=== PATIENT | female | born 1950 | race Caucasian/White ===

== ENCOUNTER 2019-07-03 11:09 | Emergency (ER) | payer OTHER ==
[2019-07-03 11:21] VITALS: BMI 24.7
--- NOTE | 2019-07-03 12:39 | PDOC ---
History of Present Illness - General Chief Complaint: Shortness of Breath Stated Complaint: ASTHMA Time Seen by Provider: 07/03/19 12:03 History Source: Patient Exam Limitations: No Limitations - History of Present Illness Initial Comments: 07/03/19 12:48 PCP: Roberto Coombs Pulm: [facility] HPI: 68yo never-smoker F pmh CKD, neck pain, 1 year or cough presenting with 1 week of worsening SOB. Patient has had 1 year of cough, shortness of breath with intermittent episodes of worsening symptoms, referred to Dr. Breaux for pulmoary workup, diagnosed with asthma, on 5mg Prednisone BID with albuterol inhaler. Reports she has a nebulizer Rx and the machine will be ready at her pharmacy later today. Presenting with what she believes is an exacerbation of her asthma. 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 Also endorsing chest tightness worsening over the past week, intermittently, temporally associated with her breathing symptoms but not pleuritic. No recent flights, leg swelling or pain, OCPs, history of DVT or clotting disorders. Denies any prior cardiac events, some mitral valve dysfunction, no HTN / HLD / FHx reported. Denies nausea, vomiting, crushing chest pain, diaphoresis. No fevers, chills, productive cough, weakness, fatigue , sick contacts. All: NKDA Meds: Per chart PMH: Chronic neck pain, 1 year cough, CKD, MV dysfunction Past History - Travel Traveled outside of the country in the last 30 days: No Close contact w/someone who was outside of country & ill: No - Past Medical History Allergies/Adverse Reactions: Allergies Allergy/AdvReac Type Severity Reaction Status Date / Time No Known Allergies Allergy Verified 07/03/19 11:19 Home Medications: Ambulatory Orders Albuterol Sulfate Inhaler - [Ventolin Hfa Inhaler -] 1 - 2 inh PO Q4H PRN Albuterol Sulfate [Proair Hfa] 8.5 gm IH QID PRN #1 [email or web address] 07/03/19 predniSONE [Deltasone -] 10 mg PO DAILY 07/03/19 - Psycho Social/Smoking Cessation Hx Smoking History: Never smoked Hx Alcohol Use: No Drug/Substance Use Hx: No Review of Systems - Review of Systems Able to Perform ROS?: Yes Is the patient limited Slovak proficient: Yes Constitutional: No: Chills, Diaphoresis, Fever, Weakness HEENTM: No: Eye Pain, Blurred Vision, Recent change in vision, Nose Congestion, Throat Pain, Throat Swelling, Mouth Pain Cardiac (ROS): Yes: Chest Tightness ABD/GI: No: Constipated, Diarrhea, Nausea, Vomiting : No: Burning, Dysuria, Frequency Musculoskeletal: No: Back Pain, Muscle Pain, Muscle Weakness Integumentary: No: Pruritus, Rash Neurological: No: Headache, Numbness, Tingling, Weakness Psychiatric: No: Stressors, Change in Appetite Endocrine: No: Increased Thirst, Increased Urine Hematologic/Lymphatic: No: Anemia, Blood Clots, Easy Bleeding All Other Systems: Reviewed and Negative *Physical Exam - Vital Signs Last Vital Signs Temp Pulse Resp BP Pulse Ox 97.8 F 78 18 141/86 98 07/03/19 11:19 07/03/19 11:19 07/03/19 11:19 07/03/19 11:19 07/03/19 11:19 - Physical Exam 07/03/19 14:34 Vitals reviewed, AFVSS GEN: Well appearing, appears stated age, NAD, comfortable. AAOx3. HEENT: NCAT, EOMI, PERRL. Sclera anicteric, noninjected. No facial asymmetry. Moist mucous membranes. Normal voice. Trachea midline. CV: RRR, S1/S2, no murmurs / rubs / gallops appreciated. LUNG: CTAB, normal work of breathing. No wheezes, rales, rhonchi. No cough. Speaking full sentences. GI: Soft, NTND, +BS, no guarding, no rebound. No masses. Neg CVAT b/l. EXTREMITIES: 2+ distal pulses. No LE edema. No obvious deformities of all extremities. SKIN: Warm, dry, no rashes appreciated, non-jaundiced. PSYCH: Normal mood and affect. Cooperative and appropriate. NEURO: CN grossly intact. Moving all extremities well. Normal strength and sensation grossly. ED Treatment Course - LABORATORY CBC & Chemistry Diagram: 07/03/19 13:10 07/03/19 13:10 Medical Decision Making - Medical Decision Making 07/03/19 13:00 68yo never-smoker F pmh CKD, neck pain, 1 year or cough presenting with 1 week of worsening SOB. History notable for nonproductive cough, dyspnea, absence of systemic symptoms or inciting events, non-pleuritic chest tightness. Exam notable for no wheezes, stable vitals, 100% Sat on RA, comfortable. DDX: Cold, influenza, PNA, asthma exacerbation, other primary pulmonary disorder (no fibrosis on recent CT), less likely r/o ACS, unlikely PE. Cannot PERC out, Wells ' Score 0. - Place on monitor - CXR, EKG - Troponin - Influenza 07/03/19 14:30 EKG normal rate, rhythm, axis, no ischemic changes, incomplete RBBB No leukocytosis or anemia Electrolytes wnl Troponin negative Influenza negative Patient remains hemodynamically stable Call placed to Dr. Breaux, out of office, referral provided Dispo: Home 07/03/19 14:59 - Spoke with Dr. Coombs, patient with negative stress test late [address] Horn at [place], Hx of mitral stenosis - Continue symbicort and prednisone, add proair 2 puffs QID - Has Appointment with [facility] on Wednesday 07/05 - Has appointment with Dr. Breaux on Thursday 07/06 Discharge - Discharge Information Problems reviewed: Yes Clinical Impression/Diagnosis: Shortness of breath Condition: Improved Disposition: HOME - Admission No - Follow up/Referral Referrals: Roberto Napoles MD [Primary Care Provider] - Chad Breaux MD [Staff Physician] - - Patient Discharge Instructions Patient Printed Discharge Instructions: DI for Shortness of Breath Additional Instructions: You were seen and evaluated at [place] for shortness of breath. Continue your home medications as prescribed. Continue prednisone and symbicort as directed. A prescription has been sent for a Proair inhaler, use this 2 puffs every 6 hours as needed. Please follow up with Dr. Coombs On 07/[address] Breaux 07/06 as scheduled. Return to the ED for any new or concerning symptoms including but not limited to : worsening breathing, leg swelling and pain, or worsening chest pain. - Post Discharge Activity
--- NOTE | 2019-07-03 12:45 | PDOC ---
History of Present Illness - General Chief Complaint: Shortness of Breath Stated Complaint: ASTHMA Time Seen by Provider: 07/03/19 12:03 - History of Present Illness Initial Comments: 07/03/19 12:44 68 y/o female with a PMHx of CKD and 1 year h/o cough here today w/ 1 week h/o worsening non-productive cough and acute onset of chest pain. CP is squeezing, substernal, non-radiating and started either this morning. Evaluated by PMD for cough and told she had asthma. Reports a negative CT chest earlier this month. Past History - Past Medical History Allergies/Adverse Reactions: Allergies Allergy/AdvReac Type Severity Reaction Status Date / Time No Known Allergies Allergy Verified 07/03/19 11:19 Home Medications: Ambulatory Orders Albuterol Sulfate Inhaler - [Ventolin Hfa Inhaler -] 1 - 2 inh PO Q4H PRN predniSONE [Deltasone -] 10 mg PO DAILY 07/03/19 - Psycho Social/Smoking Cessation Hx Smoking History: Never smoked Hx Alcohol Use: No Drug/Substance Use Hx: No Review of Systems - Review of Systems Is the patient limited [place] proficient: Yes *Physical Exam - Vital Signs Last Vital Signs Temp Pulse Resp BP Pulse Ox 97.8 F 78 18 141/86 98 07/03/19 11:19 07/03/19 11:19 07/03/19 11:19 07/03/19 11:19 07/03/19 11:19 Discharge - Follow up/Referral Referrals: Roberto Napoles MD [Primary Care Provider] - - Patient Discharge Instructions - Post Discharge Activity
--- NOTE | 2019-07-03 13:15 | PDOC ---
Attending Attestation - Resident Resident Name: SdBrennon sawyeriel - ED Attending Attestation I have performed the following: I have examined & evaluated the patient, The case was reviewed & discussed with the resident, I agree w/resident's findings & plan - HPI HPI: 07/03/19 14:06 68yo never-smoker F pmh CKD, neck pain, 1 year or cough presenting with 1 week of worsening SOB. Patient has had 1 year of cough, shortness of breath with intermittent episodes of worsening symptoms, referred to Dr. Breaux for pulm workup, diagnosed with asthma, on 5mg Prednisone BID with albuterol inhaler. Reports she has a nebulizer Rx and the machine will be ready at her pharmacy later today. Presenting with what she believes is an exacerbation of her asthma. 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 Also endorsing chest tightness worsening over the past week, intermittently, temporally associated with her breathing symptoms but not pleuritic. No recent immobilization or flight, leg swelling or pain, OCPs, history of DVT or clotting disorders. Denies any prior cardiac events, Denies nausea, vomiting, crushing chest pain, diaphoresis. No fevers, chills, productive cough, weakness, fatigue, sick contacts. PMD Dr Breaux 07/03/19 14:46 - Physicial Exam PE: 07/03/19 13:13 Agree with the resident's HPI and PE as documented in the electronic medical record. NAD, well appearing, EOMI, PERRL, nl conjunctiva, anicteric; no facial edema noted. Normal phonation, clear oropharynx. Neck supple. lungs clear, no respiratory distress, RRR, abdomen soft nontender. no rebound, guarding. Back nontender. LEUNG x4, no focal neuro deficits. No peripheral edema. normal color for ethnicity, WWP. - Medical Decision Making 07/03/19 13:13 Vital Signs Temp Pulse Resp BP Pulse Ox 97.8 F 78 18 141/86 98 07/03/19 11:19 07/03/19 11:19 07/03/19 11:19 07/03/19 11:19 07/03/19 11:19 ddx. sob, asthma, pulm edema, anemia, electrolyte/metabolic derangements, pleurisy, ACS, arrhythmia. VS reviewed, wnl. no fever, no tachy, sats wnl 07/03/19 14:06 Laboratory results reviewed within normal limits, flu is negative. Troponin is negative x1, reassuring unlikely be cardiac arrhythmia. Clinically doubt PE or dissection. No anemia, CBC was within normal limits. cxr clear, no acute pathology, no ptx, no effusion/edema or infiltrate. 07/03/19 14:06 clinical call back to primary doctor, Dr Breaux Pt to be discharged in stable condition. Patient made aware of clinical impression, treatment recommendations and disposition plan, return precautions discussed (including but not limited to new or persistent/worsening symptoms, pain, fevers, or signs of infection, chest pain, respiratory distress, inability to tolerate oral intake, dehydration, syncope, or neurologic changes) . Follow up with PMD and/or specialist as recommended, follow up information provided, take medications as instructed for duration of time. continue with supportive care, avoid triggers and precipitants. All questions answered to patient's satisfaction and expressed understanding and comfort with this. At the time of discharge, the patient is alert, clinically improved, tolerating po and verbalizes understanding of instructions, satisfied with the care received and felt comfortable with the plan. Patient does not suffer from an acute life- threatening medical condition at this time and is safe for outpatient follow- up. 07/03/19 14:46 Heart Score/ECG Review #1 ECG reviewed & interpreted by me at: 12:55 General ECG Interpretation: Sinus Rhythm, Normal Rate, Normal Intervals Compared to previous ECG there are: Previous ECG unavail 07/03/19 13:52 EKG normal sinus rhythm 72 bpm, incomplete right bundle branch block is noted, ST and T wave segments and morphology normal. Nonspecific T wave abnormalities
[2019-07-03 13:27] LABS: BASO % 0.6 % (0-2.0); EOS % 2.3 % (0-4.5); HEMATOCRIT 40.9 % (32.4-45.2); HEMOGLOBIN 14.3 GM/dL (10.7-15.3); LYMPH % 11.7 % (8-40); MCHC 34.9 g/dl (32.0-36.0); MEAN CELL VOLUME 91.6 fl (80-96); MEAN PLT VOLUME 8.5 fl (7.5-11.1); MONO % 3.8 % (3.8-10.2); NEUT % 81.6 % (42.8-82.8); PLATELET COUNT 155 K/MM3 (134-434); RBC 4.47 M/mm3 (3.60-5.2); RDW 14.4 % (11.6-15.6); WHITE BLOOD COUNT 7.5 K/mm3 (4.0-10.0)
--- NOTE | 2019-07-03 13:32 | PDOC ---
*Physical Exam - Vital Signs Last Vital Signs Temp Pulse Resp BP Pulse Ox 97.8 F 78 18 141/86 98 07/03/19 11:19 07/03/19 11:19 07/03/19 11:19 07/03/19 11:19 07/03/19 11:19 ED Treatment Course - LABORATORY CBC & Chemistry Diagram: 07/03/19 13:10 07/03/19 13:10 - ADDITIONAL ORDERS Additional order review: 07/03/19 13:10 RBC 4.47 MCV 91.6 MCHC 34.9 RDW 14.4 MPV 8.5 Neutrophils % 81.6 D Lymphocytes % 11.7 D Monocytes % 3.8 Eosinophils % 2.3 Basophils % 0.6 Medical Decision Making - Medical Decision Making 07/03/19 13:32 68 y/o female with a PMHx of CKD and 1 year h/o cough here today w/ 1 week h/o worsening non-productive cough and acute onset of CP. CP is squeezing, substernal, non-radiating and started either this morning. Evaluated by PMD for cough and told she had asthma. Reports a negative CT chest earlier this month. EKG, Troponin x1 to evaluate for r/o ACS, also consider chronic bronchitis, PNA , asthma, costochondritis, MSK 07/03/19 15:03 EKG with RBBB (c/w previous EKG) Troponin (-) x1 Patient well appearing, ambulatory around unit, requesting d/c home. Dr. Beaver discussed case with patient's PMD - requests Pro Air PRN, will see patient in office on Friday. Patient has previously scheduled appointment with Namita on Friday. Discharge - Discharge Information Problems reviewed: Yes Clinical Impression/Diagnosis: Shortness of breath Condition: Improved Disposition: HOME - Additional Discharge Information Prescriptions: Albuterol Sulfate [Proair Hfa] 8.5 gm IH QID PRN #1 [email or web address] PRN Reason: Asthma - Follow up/Referral Referrals: Chad Breaux MD [Staff Physician] - Roberto Napoles MD [Primary Care Provider] - - Patient Discharge Instructions Patient Printed Discharge Instructions: DI for Shortness of Breath Additional Instructions: You were seen and evaluated at [place] for shortness of breath. Continue your home medications as prescribed. Please follow up with your primary care doctor in the next 1-3 days for continued care. Return to the ED for any new or concerning symptoms including but not limited to : worsening breathing, leg swelling and pain, or worsening chest pain. - Post Discharge Activity
[2019-07-03 13:58] LABS: ALBUMIN 3.6 g/dl (3.4-5.0); ALK PHOS 80 U/L (45-117); ANION GAP 5 MMOL/L (8-16); BILIRUBIN,TOTAL 0.6 mg/dL (0.2-1); BLOOD UREA NITROGEN 21.2 mg/dL (7-18); CALCIUM 9.2 mg/dL (8.5-10.1); CHLORIDE 111 mmol/L (98-107); CO2 27 mmol/L (21-32); CREATININE 1.1 mg/dL (0.55-1.3); GLUCOSE,RANDOM 108 mg/dL (74-106); POTASSIUM 4.3 mmol/L (3.5-5.1); SGOT/AST 27 U/L (15-37); SGPT/ALT 41 U/L (13-61); SODIUM 143 mmol/L (136-145); TOT PROT 7.2 g/dl (6.4-8.2)
[2019-07-03 14:47] VITALS: BP 124/77; PULSE 72; TEMP 97.2
--- NOTE | 2019-07-05 10:25 | EKG ---
Test Reason : Blood Pressure : / mmHG Vent. Rate : 072 BPM Atrial Rate : 072 BPM P-R Int : 134 ms QRS Dur : 110 ms QT Int : 388 ms P-R-T Axes : 064 022 017 degrees QTc Int : 424 ms NORMAL SINUS RHYTHM INCOMPLETE RIGHT BUNDLE BRANCH BLOCK BORDERLINE ECG WHEN COMPARED WITH ECG OF 28-AUG-2006 11:22, NO SIGNIFICANT CHANGE WAS FOUND Confirmed by Mauro Kwan ([id number]) on 07/05/2019 10:25:04 AM Referred By: Confirmed By:Mauro Kwan
== END 2019-07-03 15:17 | disposition home or self-care (01) ==
LOC: JER 11:09
DX: J45.909 Unspecified asthma, uncomplicated (principal); R06.02 Shortness of breath; M54.2 Cervicalgia; G89.29 Other chronic pain; N18.9 Chronic kidney disease, unspecified
CPT/HCPCS: 36415; 71046-TC-FY; 80053; 84484; 85025; 87804; 93005; 93010; 99285-25